=== PATIENT | female | born 1965 | race Caucasian/White ===

== ENCOUNTER 2018-05-26 23:16 | Emergency (ER) | payer BC, MEDICAID ==
[~2018-05-26] VITALS: Ht 160 cm; Wt 66.0 kg
[2018-05-26] MEDS ORDERED: ondansetron/PF 4mg/2ml inj IV ONE (23:40)
[2018-05-26] MEDS ORDERED: normal saline 1000ml 1,000 ML IV ONE (23:40)
[2018-05-26] MEDS ORDERED: morphine 4 MG/ML inj SYRINge IV ONE (23:40)
[2018-05-26 23:48] LABS: BASOPHILS % (AUTO) 0.3 % (0-1); EOSINOPHILS # (AUTO) 0.2 X10'3 (0-0.9); EOSINOPHILS % (AUTO) 1.5 % (0-6); HEMATOCRIT 40.1 % (35.0-45.0); HEMOGLOBIN 12.8 g/dl (12.0-16.0); LYMPHOCYTES # (AUTO) 2.9 X10'3 (1.1-4.8); LYMPHOCYTES % (AUTO) 29.3 % (21-51); MEAN CORPUSCULAR HEMOGLOBIN 27.7 PG (27.0-31.0); MEAN CORPUSCULAR VOLUME 86.7 FL (78-98); MEAN PLATELET VOLUME 8.9 FL (7.4-10.4); MONOCYTES # (AUTO) 0.4 X10'3 (0-0.9); MONOCYTES % (AUTO) 4.1 % (2-12); NEUTROPHILS # (AUTO) 6.5 X10'3 (1.8-7.7); NEUTROPHILS % (AUTO) 64.8 % (42-75); PLATELET COUNT 253 X10'3 (140-440); RED BLOOD COUNT 4.62 X10'6 (4.20-5.60); RED CELL DISTRIBUTION WIDTH 14.1 % (11.5-14.5)
[2018-05-27 00:03] LABS: ALANINE AMINOTRANSFERASE 66 U/L (12-78); ALBUMIN 3.2 G/DL (3.4-5.0); ALBUMIN/GLOBULIN RATIO 0.8 (1.1-1.5); ANION GAP 10 (8-16); ASPARTATE AMINO TRANSFERASE 85 U/L (10-37); BILIRUBIN,TOTAL 0.4 MG/DL (0.1-1.0); BLOOD UREA NITROGEN 12 MG/DL (7-18); BUN/CREATININE RATIO 11.5 (6.6-38.0); CALCIUM 8.8 MG/DL (8.5-10.1); CHLORIDE 105 MMOL/L (99-107); CREATININE 1.04 MG/DL (0.40-0.90); GLUCOSE 124 MG/DL (70-104); POTASSIUM 3.4 MMOL/L (3.5-5.1); SODIUM 141 MMOL/L (135-145); TOTAL CARBON DIOXIDE 26.3 MMOL/L (24-32); TOTAL PROTEIN 7.3 G/DL (6.4-8.2); eGFR 56 ML/MIN
[2018-05-27 00:04] LABS: ALKALINE PHOSPHATASE 292 IU/L (46-116)
[2018-05-27 00:05] LABS: COLOR,URINE YELLOW (Yellow); GLUCOSE, URINE NEGATIVE (Neg); KETONES,URINE TRACE mg/dl (Neg); LEUKOCYTE ESTERASE ,URINE SMALL (Neg); NITRITES, URINE NEGATIVE (Neg); OCCULT BLOOD,URINE NEGATIVE (Neg); PH,URINE 6.5 (4.8-8.0); PROTEIN,URINE NEGATIVE (Neg)
[2018-05-27 00:11] LABS: CLARITY,URINE SLIGHTLY CLOUDY (Clear); UA COLLECTION TYPE CLN CATCH MIDSTREAM
[2018-05-27 00:12] LABS: BACTERIA,URINE FEW /HPF (Neg); CAL OXALATE CRYSTALS 2+ /HPF (NEGATIVE); RBC,URINE 0-2 /HPF (0-2); SQUAMOUS EPITHELIAL CELL,UR FEW /LPF (FEW); WBC,URINE 0-4 /HPF (0-4)
[2018-05-27] MEDS ORDERED: ONDA4TAB9 PO (00:44)
[2018-05-27 00:51] VITALS: BP 121/72
== END 2018-05-27 01:06 | disposition home or self-care (01) ==
LOC: ER 23:17
DX: R10.9 Unspecified abdominal pain (principal); E78.00 Pure hypercholesterolemia, unspecified; I10 Essential (primary) hypertension; F41.9 Anxiety disorder, unspecified; Z90.710 Acquired absence of both cervix and uterus; Z90.89 Acquired absence of other organs; Z88.0 Allergy status to penicillin; Z88.1 Allergy status to other antibiotic agents
CPT/HCPCS: 36415; 80053; 81001; 85025; 85610; 87088; 96374; 96375; 99284; J2270; J2405; 81003

== ENCOUNTER 2018-05-31 08:27 | Emergency (ER) | payer BC, MEDICAID ==
[~2018-05-31] VITALS: Ht 160 cm; Wt 73.2 kg
[~2018-05-31 08:27] MED LIST: ONDA4TAB9 PO
[2018-05-31] MEDS ORDERED: normal saline 1000ML IV soln IVB ONE ×2 (08:40→10:15)
[2018-05-31 09:00] LABS: BASOPHILS % (AUTO) 0.3 % (0-1); EOSINOPHILS # (AUTO) 0.1 X10'3 (0-0.9); EOSINOPHILS % (AUTO) 1.1 % (0-6); HEMATOCRIT 39.4 % (35.0-45.0); HEMOGLOBIN 12.9 g/dl (12.0-16.0); LYMPHOCYTES # (AUTO) 3.1 X10'3 (1.1-4.8); LYMPHOCYTES % (AUTO) 41.3 % (21-51); MEAN CORPUSCULAR HEMOGLOBIN 28.3 PG (27.0-31.0); MEAN CORPUSCULAR HGB CONC 32.6 % (33.0-36.5); MEAN CORPUSCULAR VOLUME 86.8 FL (78-98); MEAN PLATELET VOLUME 8.8 FL (7.4-10.4); MONOCYTES # (AUTO) 0.4 X10'3 (0-0.9); MONOCYTES % (AUTO) 5.1 % (2-12); NEUTROPHILS # (AUTO) 3.9 X10'3 (1.8-7.7); NEUTROPHILS % (AUTO) 52.2 % (42-75); PLATELET COUNT 234 X10'3 (140-440); RED BLOOD COUNT 4.54 X10'6 (4.20-5.60); RED CELL DISTRIBUTION WIDTH 14.3 % (11.5-14.5); WHITE BLOOD COUNT 7.5 X10'3 (4.5-11.0)
[2018-05-31 09:15] LABS: ALANINE AMINOTRANSFERASE 29 U/L (12-78); ALBUMIN/GLOBULIN RATIO 0.8 (1.1-1.5); ALKALINE PHOSPHATASE 193 IU/L (46-116); ANION GAP 10 (8-16); ASPARTATE AMINO TRANSFERASE 16 U/L (10-37); BILIRUBIN,TOTAL 0.3 MG/DL (0.1-1.0); BLOOD UREA NITROGEN 7 MG/DL (7-18); BUN/CREATININE RATIO 7.4 (6.6-38.0); CHLORIDE 106 MMOL/L (99-107); CREATININE 0.94 MG/DL (0.40-0.90); GLUCOSE 104 MG/DL (70-104); POTASSIUM 3.3 MMOL/L (3.5-5.1); SODIUM 140 MMOL/L (135-145); TOTAL CARBON DIOXIDE 24.5 MMOL/L (24-32); eGFR 63 ML/MIN
[2018-05-31 09:23] LABS: TROPONIN I < 0.04 NG/ML (0.0-0.05)
[2018-05-31 09:53] LABS: CLARITY,URINE CLEAR (Clear); COLOR,URINE YELLOW (Yellow); GLUCOSE, URINE NEGATIVE (Neg); KETONES,URINE NEGATIVE (Neg); LEUKOCYTE ESTERASE ,URINE TRACE (Neg); NITRITES, URINE NEGATIVE (Neg); OCCULT BLOOD,URINE NEGATIVE (Neg); PROTEIN,URINE NEGATIVE (Neg); UROBILINOGEN,URINE 0.2 E.U/dL (0.2-1.0)
[2018-05-31 09:56] LABS: UA COLLECTION TYPE CLN CATCH MIDSTREAM
[2018-05-31 10:00] LABS: BACTERIA,URINE NONE SEEN /HPF (Neg); RBC,URINE NONE SEEN /HPF (0-2); SQUAMOUS EPITHELIAL CELL,UR MODERATE /LPF (FEW)
[2018-05-31] MEDS ORDERED: sulfamethoxazole/trimethoprim DS (800/160mg) tablet PO ONE (10:15)
[2018-05-31] MEDS ORDERED: POTA20TA19 PO ×2 (10:17→12:52)
[2018-05-31] MEDS ORDERED: BACDS PO ×2 (10:17→12:52)
[2018-05-31 12:13] VITALS: BP 103/68
== END 2018-05-31 13:19 | disposition home or self-care (01) ==
LOC: ER 08:28
DX: N39.0 Urinary tract infection, site not specified (principal); E86.0 Dehydration; E87.6 Hypokalemia; R41.82 Altered mental status, unspecified; R42 Dizziness and giddiness; I10 Essential (primary) hypertension; E78.00 Pure hypercholesterolemia, unspecified; Z88.0 Allergy status to penicillin; Z88.1 Allergy status to other antibiotic agents; Z90.89 Acquired absence of other organs; Z90.710 Acquired absence of both cervix and uterus
CPT/HCPCS: 36415; 80053; 81001; 83880; 84443; 84484; 85025; 87088; 93005; 96360; 96361; 99285

== ENCOUNTER 2020-07-24 22:24 | Emergency (ER) | payer BC, MEDICAID | END 2020-07-24 23:20 | disposition left against medical advice (07) | LOC: ER 22:25 | DX: R10.84 Generalized abdominal pain (principal); Z53.21 Procedure and treatment not carried out due to patient leaving prior to being seen by health care provider ==

== ENCOUNTER 2024-09-17 06:28 | Outpatient (CLI) | payer MEDICAID ==
[2024-09-17] MEDS ORDERED: LIDOcaine 1% 30ml preserv. free vial ONE (06:41)
[2024-09-17] MEDS ORDERED: GADOTERATE MEGLUMINE 7.5 MMOL/15 ML VIAL IV ONE (06:41)
[2024-09-17] MEDS ORDERED: LIDOcaine 1%/PF 5ML 10 MG/ML VIAL ONE (06:41)
[2024-09-17] MEDS ORDERED: iohexol 300 MG/1 ML 50ml polymer ONE (06:41)
== END 2024-09-17 23:59 | disposition home or self-care (01) ==
LOC: RAD 06:28
PROVIDERS: ATTEND Pediatrics Sports Medicine
DX: M25.511 Pain in right shoulder (principal); S43.431A Superior glenoid labrum lesion of right shoulder, initial encounter; M25.311 Other instability, right shoulder; X58.XXXA Exposure to other specified factors, initial encounter; Y93.89 Activity, other specified; Y92.89 Other specified places as the place of occurrence of the external cause; Y99.8 Other external cause status
CPT/HCPCS: 23350; 73222; 77002; A9575; J2003; J3490; Q9967

== ENCOUNTER 2024-11-29 11:10 | Outpatient (CLI) | payer MEDICAID ==
--- NOTE | 2024-11-29 16:05 | RADIOLOGY REPORT ---
CLINICAL HISTORY: PAIN IN RIGHT ANKLE AND JOINTS OF RIGHT FOOT TECHNIQUE: Multisequence multiplanar MRI images of the right ankle were obtained without contrast. COMPARISON: No prior imaging of the right ankle was available for comparison at the time of dictation . FINDINGS: BONES/JOINTS: No acute fracture or focal marrow contusion. No osteochondral defect or significant cho ndromalacia. No significant joint effusion. TENDONS: Tibialis posterior, flexor digitorum longus, and flexor hallucis longus tendons are intact. Tiny focus of intrasubstance signal in the peroneus longus tendon along its inframalleolar course, pr oximal to the level of the peroneal tubercle, possible very small thin longitudinal split tear. Peron eus brevis tendon is intact. Tibialis anterior, extensor hallucis longus, and extensor digitorum long us tendons are intact. Mild Achilles tendinosis with mild peritendinitis. No tear. LIGAMENTS: Minimal edema in the deep fibers of the deltoid ligament complex, possible sequela of spra in. Spring ligament complex is intact. Attenuated anterior talofibular ligament without significant a djacent edema and No evidence of tear, likely chronic sprain. Posterior talofibular ligament is intac t. Syndesmotic ligaments are intact. Calcaneofibular ligament is intact. PLANTAR FASCIA: Unremarkable. No significant thickening or edema. SINUS TARSI: Unremarkable. No significant edema. MUSCLES: Unremarkable. No significant atrophy. OTHER: No other significant findings. IMPRESSION: 1. Possible very small longitudinal split tear in the peroneus longus tendon. Correlate with clinical findings. 2. Attenuated anterior talofibular ligament without evidence of tear or adjacent soft tissue edema, l ikely chronic. 3. Possible sprain of the deep fibers of the deltoid ligament complex, of uncertain chronicity. 4. Mild Achilles tendinosis with mild peritendinitis.
== END 2024-11-30 23:59 | disposition home or self-care (01) ==
LOC: MRI02 11:10
PROVIDERS: ATTEND Podiatrist Foot & Ankle Surgery
DX: S93.401D Sprain of unspecified ligament of right ankle, subsequent encounter (principal); M76.61 Achilles tendinitis, right leg; M25.571 Pain in right ankle and joints of right foot; R26.2 Difficulty in walking, not elsewhere classified; X58.XXXD Exposure to other specified factors, subsequent encounter
CPT/HCPCS: 73721